=== PATIENT | female | born 1940 | race Caucasian/White ===

== ENCOUNTER 2024-09-20 15:09 | Emergency (ER) | payer MEDICARE, SELFPAY ==
[2024-09-20 15:09] VITALS: BMI 21.2
--- NOTE | 2024-09-20 15:13 | XRR_ITS ---
PROCEDURE INFORMATION: Exam: XR Chest Exam date and time: 09/20/2024 4:48 PM Age: 84 years old Clinical indication: Other: AMS TECHNIQUE: Imaging protocol: Radiologic exam of the chest. Views: 1 view. COMPARISON: No relevant prior studies available. FINDINGS: Lungs: Unremarkable. No consolidation. Pleural spaces: Unremarkable. No pleural effusion. No pneumothorax. Heart/Mediastinum: Possible cardiomegaly.Heart size not optimally evaluated with a single AP view of the chest. Vasculature: There is calcified plaque in the thoracic aorta. Bones/joints: Generalized osteopenia. XR/XR chest 1V portable [id number] IMPRESSION: Possible cardiomegaly.Heart size not optimally evaluated with a single AP view of the chest.
--- NOTE | 2024-09-20 15:13 | ECG_ITS ---
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 Measurements Intervals [place] Rate: 62 P: 77 GA: 187 QRS: -44 QRSD: 121 T: 96 QT: 490 QTc: 501 Interpretive Statements SINUS RHYTHM POSSIBLE LEFT ATRIAL ENLARGEMENT [-0.1mV P-WAVE IN V1/V2] LEFT AXIS DEVIATION [QRS AXIS < -30] POSSIBLE RIGHT VENTRICULAR CONDUCTION DELAY [RSR (QR) IN V1/V2] ANTEROSEPTAL MYOCARDIAL INFARCTION , OF INDETERMINATE AGE [40+ ms Q WAVE IN V1-V4] No previous ECG available for comparison Electronically Signed On 09-20-2024 21:25:11 [employer] by Rick Cheema M.D. [email or web address]
--- NOTE | 2024-09-20 15:16 | CTR_ITS ---
PROCEDURE INFORMATION: Exam: CT Head Without Contrast Exam date and time: 09/20/2024 4:46 PM Age: 84 years old Clinical indication: Altered mental status/memory loss; Confusion or disorientation; Additional info: AMS TECHNIQUE: Imaging protocol: Computed tomography of the head without contrast. Radiation optimization: All CT scans at this facility use at least one of these dose optimization techniques: automated exposure control; mA and/or kV adjustment per patient size (includes targeted exams where dose is matched to clinical indication); or iterative reconstruction. COMPARISON: No relevant prior studies available. RADIATION DOSE METRICS: Total DLP (mGy-cm): 994.78 FINDINGS: Brain: Age-related brain parenchymal atrophy. Areas of hypoattenuation in the periventricular and subcortical deep white matter likely on the basis of chronic microvascular ischemic changes. No acute intra cranial hemorrhage. No mass effect or midline shift. No definitive CT evidence of acute territorial infarction. Area of encephalomalacia involving the left cerebellar hemisphere. Cerebral ventricles: Prominence of the lateral ventricular system likely on the basis of ex vacuo dilatation. Paranasal sinuses: Visualized sinuses are unremarkable. No fluid levels. Mastoid air cells: Visualized mastoid air cells are well aerated. Bones: Intact calvarium. . Soft tissues: Unremarkable. CT/CT head wo con* [id number] IMPRESSION: No acute intracranial process. Chronic senescent changes above.
[2024-09-20 15:24] VITALS: BP 188/129; PULSE 99; RESP 16; O2SAT 100
--- NOTE | 2024-09-20 15:26 | W.ED.PSYCHS ---
Documented by User: Julieta Miller MD 09/21/24 10:04 HPI - Psych General: Chief Complaint: Psychiatric Symptoms Stated Complaint: 96 Time Seen by Provider: 09/20/24 15:13 Source: family Mode of arrival: ambulatory Limitations: altered mental status History of Present Illness: 84-year-old female with a history of dementia brought in today from family wanting her placed in [facility] facility states she has been extremely agitated more altered than normal and a danger to herself states she has been wandering around patient in the waiting room tried to elope was trying to get into multiple cars here she has flight of ideas does not make any sense here when speaking to her she is able to tell me her name not able answer other questions appropriately no known recent illnesses. Per family she is also made threats to kill herself anyone is trying to help her Related Data Home Medications Medication Instructions Recorded Confirmed No Known Home Medications 09/21/24 09/21/24 Review of Systems General: Reports: ROS unobtainable due to mental status Physical Exam Const: COMMON NORMALS: negative for patient oriented x3 EXAM LIMITATIONS: altered mental status HENMT: COMMON NORMALS: normocephalic and atraumatic HEAD & SCALP: normocephalic and atraumatic Neck/C-Spine: COMMON NORMALS: full ROM and supple Chest: COMMONS NORMALS: normal inspection of the chest Resp: COMMON NORMALS: normal respiratory effort, No retractions, No use of accessory muscles and clear to auscultation bilaterally AUSCULTATION: clear to auscultation bilaterally Cardio: COMMON NORMALS: regular rate, regular rhythm and No murmurs present (Cardio) RATE: regular rate RHYTHM: regular rhythm GI: COMMON NORMALS: Normal to inspection, nondistended, normoactive bowel sounds present, Soft to palpation, non-tender and no masses PALPATION: Yes Soft to palpation Extremity: COMMON NORMALS: normal to inspection and full ROM Neuro: COMMON NORMALS: moves all extremities and no focal motor deficits; negative for patient oriented x3 Psych: COMMON NORMALS: negative for Normal thought process present MOOD & AFFECT: Yes elevated mood and Yes irritable THOUGHT PROCESS: abnormal Skin: COMMON NORMALS: no rashes or lesions noted and no wounds GENERAL SKIN EXAM: no rashes or lesions noted Course Vital Signs: Vital signs: Vital Signs Pulse Rate 78 09/21/24 12:00 Respiratory Rate 16 09/21/24 09:29 Blood Pressure 189/73 09/21/24 12:00 Pulse Oximetry 98 09/21/24 12:00 Oxygen Delivery Me thod Room Air 09/21/24 09:29 MDM - Psych Medical Decision Making Patient presents with acute psychosis she is placed on a 96-hour hold she is excepted at [facility] will transfer there for higher level of care for geriatric psych Medical Records I reviewed the patient's medical records. Lab Data I reviewed the patient's lab results. 09/20/24 17:05 09/20/24 17:05 Radiology Impressions Chest X-Ray 09/20/24 15:13 IMPRESSION: Possible cardiomegaly.Heart size not optimally evaluated with a single AP view of the chest. Head CT 09/20/24 15:16 IMPRESSION: No acute intracranial process. Chronic senescent changes above. Laboratory Results WBC 8.39 10^3/uL (3.29-11.43) 09/20/24 17:05 RBC 4.34 10^6/uL (3.85-5.65) 09/20/24 17:05 Hgb 13.10 g/dL (11.27-16.99) 09/20/24 17:05 Hct 42.0 % (36-47) 09/20/24 17:05 MCV 96.8 fl (85-98) 09/20/24 17:05 MCH 30.2 pg (27-33) 09/20/24 17:05 MCHC 31.2 g/dL (30-55) 09/20/24 17:05 RDW 13.9 % (12.1-15.1) 09/20/24 17:05 Plt Count 175 10^3/cmm (157-399) 09/20/24 17:05 MPV 11.4 fL (7.4-10.4) H 09/20/24 17:05 Neut % (Auto) 80.6 % 09/20/24 17:05 Lymph % (Auto) 8.9 % 09/20/24 17:05 Bracken % (Auto) 8.6 % 09/20/24 17:05 Eos % (Auto) 1.0 % 09/20/24 17:05 Baso % (Auto) 0.7 % 09/20/24 17:05 Neut # (Auto) 6.76 10^3/uL (1.8-7.7) 09/20/24 17:05 Lymph # (Auto) 0.8 10^3/uL (0.8-4.8) 09/20/24 17:05 Bracken # (Auto) 0.7 10^3/uL (0.2-0.9) 09/20/24 17:05 Eos # (Auto) 0.1 10^3/uL (0.0-0.8) 09/20/24 17:05 Baso # (Auto) 0.1 10^3/uL (0.0-0.1) 09/20/24 17:05 Nucleated RBC % (auto) 0 % 09/20/24 17:05 Nucleated RBCs # 0.0 /100WBC 09/20/24 17:05 Sodium 142 mmol/L (136-145) 09/20/24 17:05 Potassium 4.0 mmol/L (3.5-5.1) 09/20/24 17:05 Chloride 106 mmol/L (98-107) 09/20/24 17:05 Carbon Dioxide 26 mmol/L (22-29) 09/20/24 17:05 Anion Gap 14.0 (5-19) 09/20/24 17:05 BUN 19 mg/dL (8-23) 09/20/24 17:05 Creatinine 0.7 mg/dL (0.5-0.9) 09/20/24 17:05 GFR Calculation Not Reportable 09/20/24 17:05 Glucose 88 mg/dL (65-115) 09/20/24 17:05 Calculated Osmolality 296 mOsm/kg (285-295) H 09/20/24 17:05 Calcium 9.4 mg/dL (8.5-10.5) 09/20/24 17:05 Total Bilirubin 0.3 mg/dL (0.15-1.2) 09/20/24 17:05 AST 22 U/L (0-32) 09/20/24 17:05 ALT 11 U/L (0-33) 09/20/24 17:05 Alkaline Phosphatase 49 U/L (35-105) 09/20/24 17:05 Total Protein 6.8 g/dL (6.6-8.7) 09/20/24 17:05 Albumin 4.1 g/dL (3.5-5.2) 09/20/24 17:05 Globulin 2.7 g/dL (1.3-4.6) 09/20/24 17:05 TSH 5.74 uIU/mL (0.27-4.20) H 09/20/24 17:05 Urine Color Yellow (Yellow) 09/20/24 22:42 Urine Appearance Clear (CLEAR) 09/20/24 22:42 Urine pH 7.0 (5-7) 09/20/24 22:42 Ur Specific [place] 1.017 (1.005-1.030) 09/20/24 22:42 Urine Protein Trace (Negative) A 09/20/24 22:42 Urine Glucose (UA) Negative (Normal) 09/20/24 22:42 Urine Ketones Trace (Negative) 09/20/24 22:42 Urine Blood Negative (Negative) 09/20/24 22:42 Urine Nitrate Negative (Negative) 09/20/24 22:42 Urine Bilirubin Negative (Negative) 09/20/24 22:42 Urine Urobilinogen 1.0 mg/dL (Negative) 09/20/24 22:42 Ur Leukocyte Esterase Negative (Negative) 09/20/24 22:42 Urine RBC 0-2 /hpf (0-2) 09/20/24 22:42 Urine WBC 0-5 /hpf (0-5) 09/20/24 22:42 Ur Squamous Epith Cells 0-5 /hpf (0-5) 09/20/24 22:42 Amorphous Sediment Not Reportable 09/20/24 22:42 Urine Bacteria None seen /hpf (NONE) 09/20/24 22:42 Hyaline Casts 1.65 /lpf 09/20/24 22:42 Salicylates < 0.3 mg/dL (3-10) L 09/20/24 17:05 Acetaminophen < 5.0 ug/mL (10-30) L 09/20/24 17:05 Ethyl Alcohol < 10 mg/dL (0-10) 09/20/24 17:05 Coronavirus (PCR) Negative (Negative) 09/20/24 17:20 Influenza A (PCR) Negative (Negative) 09/20/24 17:20 Influenza Type B (PCR) Negative (Negative) 09/20/24 17:20 RSV (PCR) Negative (Negative) 09/20/24 17:20 All radiology interpretation(s) finalized by discharge Discharge Plan Discharge Patient Disposition: Xfer Psychiatric Hosp Clinical Impression: Acute psychosis Condition: Stable Coding Level of Care Code ED [employer] [facility] [employer] Documented by User: Joaquin Monge MD 09/21/24 15:47 HPI - Psych General: Chief Complaint: Psychiatric Symptoms Stated Complaint: 96 Time Seen by Provider: 09/20/24 15:13 Related Data Home Medications Medication Instructions Recorded Confirmed No Known Home Medications 09/21/24 09/21/24 Course Reevaluation(s): Reevaluation #1: Dr Monge: Patient resting comfortably. Still searching for placement. I saw her and she has no complaints. Her BP is still high at 181/70's. I've ordered metoprolol succinate 12.5mg and amlodipine 5mg. Vital Signs: Vital signs: Vital Signs Pulse Rate 78 09/21/24 12:00 Respiratory Rate 16 09/21/24 09:29 Blood Pressure 189/73 09/21/24 12:00 Pulse Oximetry 98 09/21/24 12:00 Oxygen Delivery Me thod Room Air 09/21/24 09:29 MDM - Psych Lab Data 09/20/24 17:05 09/20/24 17:05 Radiology Impressions Chest X-Ray 09/20/24 15:13 IMPRESSION: Possible cardiomegaly.Heart size not optimally evaluated with a single AP view of the chest. Head CT 09/20/24 15:16 IMPRESSION: No acute intracranial process. Chronic senescent changes above. Laboratory Results WBC 8.39 10^3/uL (3.29-11.43) 09/20/24 17:05 RBC 4.34 10^6/uL (3.85-5.65) 09/20/24 17:05 Hgb 13.10 g/dL (11.27-16.99) 09/20/24 17:05 Hct 42.0 % (36-47) 09/20/24 17:05 MCV 96.8 fl (85-98) 09/20/24 17:05 MCH 30.2 pg (27-33) 09/20/24 17:05 MCHC 31.2 g/dL (30-55) 09/20/24 17:05 RDW 13.9 % (12.1-15.1) 09/20/24 17:05 Plt Count 175 10^3/cmm (157-399) 09/20/24 17:05 MPV 11.4 fL (7.4-10.4) H 09/20/24 17:05 Neut % (Auto) 80.6 % 09/20/24 17:05 Lymph % (Auto) 8.9 % 09/20/24 17:05 Bracken % (Auto) 8.6 % 09/20/24 17:05 Eos % (Auto) 1.0 % 09/20/24 17:05 Baso % (Auto) 0.7 % 09/20/24 17:05 Neut # (Auto) 6.76 10^3/uL (1.8-7.7) 09/20/24 17:05 Lymph # (Auto) 0.8 10^3/uL (0.8-4.8) 09/20/24 17:05 Bracken # (Auto) 0.7 10^3/uL (0.2-0.9) 09/20/24 17:05 Eos # (Auto) 0.1 10^3/uL (0.0-0.8) 09/20/24 17:05 Baso # (Auto) 0.1 10^3/uL (0.0-0.1) 09/20/24 17:05 Nucleated RBC % (auto) 0 % 09/20/24 17:05 Nucleated RBCs # 0.0 /100WBC 09/20/24 17:05 Sodium 142 mmol/L (136-145) 09/20/24 17:05 Potassium 4.0 mmol/L (3.5-5.1) 09/20/24 17:05 Chloride 106 mmol/L (98-107) 09/20/24 17:05 Carbon Dioxide 26 mmol/L (22-29) 09/20/24 17:05 Anion Gap 14.0 (5-19) 09/20/24 17:05 BUN 19 mg/dL (8-23) 09/20/24 17:05 Creatinine 0.7 mg/dL (0.5-0.9) 09/20/24 17:05 GFR Calculation Not Reportable 09/20/24 17:05 Glucose 88 mg/dL (65-115) 09/20/24 17:05 Calculated Osmolality 296 mOsm/kg (285-295) H 09/20/24 17:05 Calcium 9.4 mg/dL (8.5-10.5) 09/20/24 17:05 Total Bilirubin 0.3 mg/dL (0.15-1.2) 09/20/24 17:05 AST 22 U/L (0-32) 09/20/24 17:05 ALT 11 U/L (0-33) 09/20/24 17:05 Alkaline Phosphatase 49 U/L (35-105) 09/20/24 17:05 Total Protein 6.8 g/dL (6.6-8.7) 09/20/24 17:05 Albumin 4.1 g/dL (3.5-5.2) 09/20/24 17:05 Globulin 2.7 g/dL (1.3-4.6) 09/20/24 17:05 TSH 5.74 uIU/mL (0.27-4.20) H 09/20/24 17:05 Urine Color Yellow (Yellow) 09/20/24 22:42 Urine Appearance Clear (CLEAR) 09/20/24 22:42 Urine pH 7.0 (5-7) 09/20/24 22:42 Ur Specific [place] 1.017 (1.005-1.030) 09/20/24 22:42 Urine Protein Trace (Negative) A 09/20/24 22:42 Urine Glucose (UA) Negative (Normal) 09/20/24 22:42 Urine Ketones Trace (Negative) 09/20/24 22:42 Urine Blood Negative (Negative) 09/20/24 22:42 Urine Nitrate Negative (Negative) 09/20/24 22:42 Urine Bilirubin Negative (Negative) 09/20/24 22:42 Urine Urobilinogen 1.0 mg/dL (Negative) 09/20/24 22:42 Ur Leukocyte Esterase Negative (Negative) 09/20/24 22:42 Urine RBC 0-2 /hpf (0-2) 09/20/24 22:42 Urine WBC 0-5 /hpf (0-5) 09/20/24 22:42 Ur Squamous Epith Cells 0-5 /hpf (0-5) 09/20/24 22:42 Amorphous Sediment Not Reportable 09/20/24 22:42 Urine Bacteria None seen /hpf (NONE) 09/20/24 22:42 Hyaline Casts 1.65 /lpf 09/20/24 22:42 Salicylates < 0.3 mg/dL (3-10) L 09/20/24 17:05 Acetaminophen < 5.0 ug/mL (10-30) L 09/20/24 17:05 Ethyl Alcohol < 10 mg/dL (0-10) 09/20/24 17:05 Coronavirus (PCR) Negative (Negative) 09/20/24 17:20 Influenza A (PCR) Negative (Negative) 09/20/24 17:20 Influenza Type B (PCR) Negative (Negative) 09/20/24 17:20 RSV (PCR) Negative (Negative) 09/20/24 17:20 Discharge Plan Discharge Patient Disposition: Xfer Psychiatric Hosp Clinical Impression: Acute psychosis Condition: Stable Coding Level of Care Code ED [employer] for [facility] Wyatt
[2024-09-20 15:35] VITALS: BP 188/129; PULSE 99; RESP 16; O2SAT 100
[2024-09-20] MEDS: haloperidol inj 5 mg/mL INJ 1 mL IM (15:36)
[2024-09-20] MEDS: LORazepam 2 mg/mL INJ 1 mL 1 MG IM ×2 (15:36→22:00)
[2024-09-20 17:21] VITALS: PULSE 61; RESP 18; O2SAT 96
--- NOTE | 2024-09-20 17:21 | PC.NURSE ---
Attempted to read 96 hour hold rights to patient. Patient is not alert to self or anything at this time. Patient appears to be very confused. Enio from security present during reading of rights. Copy of rights was placed in patient belongings.
[2024-09-20 17:38] LABS: Basophils # 0.1 10^3/uL (0.0-0.1); Basophils % 0.7 %; Eosinophils # 0.1 10^3/uL (0.0-0.8); Lymphocytes # 0.8 10^3/uL (0.8-4.8); Lymphocytes % 8.9 %; Mean Corpuscular HGB Conc 31.2 g/dL (30-55); Mean Corpuscular Hemoglobin 30.2 pg (27-33); Mean Corpuscular Volume 96.8 fl (85-98); Mean Platelet Volume 11.4 fL (7.4-10.4); Monocytes # 0.7 10^3/uL (0.2-0.9); Monocytes % 8.6 %; Neutrophils # 6.76 10^3/uL (1.8-7.7); Neutrophils % 80.6 %; Nucleated Red Blood Cells % 0 %; Platelet Count 175 10^3/cmm (157-399); Red Blood Count 4.34 10^6/uL (3.85-5.65); Red Cell Distribution Width 13.9 % (12.1-15.1); White Blood Count 8.39 10^3/uL (3.29-11.43)
[2024-09-20 17:55] LABS: Slide Review Slide Review Perform
[2024-09-20 18:03] LABS: Alanine Aminotransferase 11 U/L (0-33); Albumin Level 4.1 g/dL (3.5-5.2); Alkaline Phosphatase 49 U/L (35-105); Aspartate Amino Transferase 22 U/L (0-32); Blood Urea Nitrogen 19 mg/dL (8-23); Calcium 9.4 mg/dL (8.5-10.5); Carbon Dioxide 26 mmol/L (22-29); Chloride 106 mmol/L (98-107); Creatinine Clr Calc Pharmacy 44.7594; Globulin 2.7 g/dL (1.3-4.6); Glucose 88 mg/dL (65-115); Osmolality Calculated 296 mOsm/kg (285-295); Sodium 142 mmol/L (136-145); Thyroid Stimulating Hormone 5.74 uIU/mL (0.27-4.20); Total Bilirubin 0.3 mg/dL (0.15-1.2); Total Protein 6.8 g/dL (6.6-8.7)
[2024-09-20 18:05] LABS: Acetaminophen < 5.0 ug/mL (10-30); Alcohol Level < 10 mg/dL (0-10); Salicylate < 0.3 mg/dL (3-10)
[2024-09-20 18:17] LABS: Covid PCR NEGATIVE (Negative); Influenza A NEGATIVE (Negative); Influenza B NEGATIVE (Negative); Respiratory Syncytial Virus Ce NEGATIVE (Negative)
[2024-09-20 20:00] VITALS: PULSE 72; RESP 14; O2SAT 97
[2024-09-20 22:48] LABS: Bilirubin Urine Negative (Negative); Blood Urine Negative (Negative); Glucose Urine UA Negative (Normal); Ketones Urine Trace (Negative); Leukocyte Esterase Urine Negative (Negative); Nitrate Urine Negative (Negative); Protein Urine Trace (Negative); Specific Gravity, Urine 1.017 (1.005-1.030); Urine Appearance Clear (CLEAR); Urine Color Yellow (Yellow)
[2024-09-20 22:53] LABS: Add Urine Microscopic? YES; Bacteria Urine None Seen /hpf; Hyaline Casts Urine 1.65 /lpf; RBC Urine 0-2 /hpf (0-2); Squamous Epithelial Cell Urine 0-5 /hpf (0-5); WBC Urine 0-5 /hpf (0-5)
[2024-09-20 23:01] LABS: UA Slide Review UA Slide Review Perf
[2024-09-21] VITALS (8 sets, daily range): BP systolic 162–189; BP diastolic 69–105; PULSE 64–89; RESP 16; O2SAT 93–98
[2024-09-21] MEDS: metoprolol succinate ER (24 HR) 25 mg Tablet 12.5 MG PO (06:33)
[2024-09-21] MEDS: amlodipine 5 mg Tablet PO (06:33)
--- NOTE | 2024-09-21 07:06 | PC.NURSE ---
took over pt care from VALENTIN Mckay at 0700
--- NOTE | 2024-09-21 10:08 | PC.NURSE ---
pt has tried multiple attempts to get out of bed with nurse tech at bedside. this RN asked pt if she wanted to watch tv and she states 'no i dont use tv', this rn redirected pt and informed her that she needs to stay in the bed. pt is sat back in bed and covered up at this time.
--- NOTE | 2024-09-21 10:32 | PC.PHAR ---
spoke to all pharmacies in [place], they have no records of her. Also, I called all relatives and they told me the same thing the last known time they got medications were 4 years ago and that she has no primary care provider.
[2024-09-21] MEDS: LORazepam 2 mg/mL INJ 1 mL 1 MG IM ×2 (10:48→15:36)
[2024-09-21] MEDS: haloperidol inj 5 mg/mL INJ 1 mL IM (15:34)
== END 2024-09-21 16:21 ==
PROVIDERS: Emergency Provider Emergency Medicine
DX: F23 Brief psychotic disorder (principal); Z11.52 Encounter for screening for COVID-19
CPT/HCPCS: 0241U; 36415; 70450; 71045; 80053; 80307; 81001; 84443; 85025; 93005; 96372; 99285; J1630; J2060